=== PATIENT | female | born 1955 | race Caucasian/White ===

== ENCOUNTER → 2016-09-05 | Outpatient (CLI) | payer MEDICARE, MEDICAID ==
[~2016-09-05] MED LIST: ASPI-875 PO; C250T PO; CLON0.5T3 PO; DESV100T PO; OMEG1CAP51 PO; QUET50TA49 PO
--- NOTE | 2016-09-05 14:21 | Diagnostic Imaging Report ---
EXAMINATION: Bilateral breast ultrasound. INDICATION: Nodule in the 12 o'clock position in the right breast and irregularity along the implant at the 9 o'clock zone on the left. FINDINGS: In the left breast at the 2 o'clock zone 8 cm from the nipple, there is a well-defined oval hypoechoic lesion measuring 0.6 x 0.3 x 0.4 cm. No internal vasculature with color Doppler is seen. RIGHT BREAST: Again seen at the 12 o'clock zone is an area of irregularity along the surface of the implant with fluid anterior to the implant is seen. This is unchanged from 07/06/2015. This may relate to prior focal rupture and leakage without progression from the previous study. IMPRESSION: The right breast demonstrates a focal area of irregularity and fluid anterior to the implant, probably related to previous limited implant rupture. This is presumably an intracapsular rupture and is unchanged from the previous exam with the implant otherwise nearly completely inflated. 2. In the left breast, there is a 0.6 cm hypoechoic lesion seen at 8 cm from the nipple with likely benign features. A 6 month followup left breast ultrasound to ensure stability is recommended. 3. The patient is refusing mammography screening. ACR BI-RADS Category 3: Probably benign findings. Dictated by: Dictated on workstation # [id number]
== END ==
LOC: RAD 10:52
PROVIDERS: ATTEND Nurse Practitioner Family
DX: T85.43XD Leakage of breast prosthesis and implant, subsequent encounter (principal); R92.8 Other abnormal and inconclusive findings on diagnostic imaging of breast

== ENCOUNTER → 2017-06-18 | Outpatient (CLI) | payer MEDICARE, MEDICAID ==
[2017-06-18 12:33] LABS: ALANINE AMINOTRANSFERASE 35 U/L (0-55); ALBUMIN 4.1 GM/DL (3.2-4.5); ALKALINE PHOSPHATASE 65 U/L (40-136); BILIRUBIN,TOTAL 0.4 MG/DL (0.1-1.0); BUN/CREATININE RATIO 13; CALCIUM 9.3 MG/DL (8.5-10.1); CARBON DIOXIDE 27 MMOL/L (21-32); CHLORIDE 101 MMOL/L (98-107); CREATININE SERUM 0.89 MG/DL (0.60-1.30); GFR ESTIMATED > 60; GLUCOSE 86 MG/DL (70-105); PHOSPHORUS 2.5 MG/DL (2.3-4.7); POTASSIUM 3.9 MMOL/L (3.6-5.0); SODIUM 135 MMOL/L (135-145); TOTAL PROTEIN 6.6 GM/DL (6.4-8.2)
[2017-06-18 12:56] LABS: FREE T4 (FREE THYROXINE) 0.96 NG/DL (0.70-1.48)
== END ==
LOC: LAB 11:39
PROVIDERS: ATTEND Internal Medicine Endocrinology, Diabetes & Metabolism
DX: R53.83 Other fatigue (principal); F50.2 Bulimia nervosa; M81.0 Age-related osteoporosis without current pathological fracture
CPT/HCPCS: 36415; 80053; 82306; 82728; 83540; 83735; 84100; 84439; 84443

== ENCOUNTER 2017-10-09 08:45 | Outpatient (RCR) | payer MEDICARE, MEDICAID | END 2017-12-12 | disposition home or self-care (01) | PROVIDERS: ATTEND Family Medicine | DX: R42 Dizziness and giddiness (principal) ==

== ENCOUNTER → 2018-03-01 | Outpatient (CLI) | payer MEDICARE, MEDICAID ==
--- NOTE | 2018-03-01 16:19 | Diagnostic Imaging Report ---
INDICATION: Left breast nodule. Patient presents for a 6 month followup. COMPARISON: Prior breast ultrasound from 09/05/2016. FINDINGS: The left breast does show a hypoechoic nodule at the 2 o'clock location 8 cm from the nipple measuring 5 mm x 2 mm x 3 mm. This is similar to perhaps slightly smaller when compared to the prior ultrasound. No other abnormality in the left breast is identified. The right breast does show a small amount of fluid adjacent to the implant measuring 2.4 x 0.3 x 1.1 cm, also similar to the prior exam. No additional abnormality is seen. IMPRESSION: Stable bilateral breast ultrasound when compared to the examination of 18 months earlier. ACR BI-RADS Category 2: Benign findings. Dictated by: Dictated on workstation # [id number]
== END ==
LOC: RAD 10:55
PROVIDERS: ATTEND Family Medicine
DX: N63.21 Unspecified lump in the left breast, upper outer quadrant (principal)

== ENCOUNTER 2018-09-04 17:19 | Inpatient (IN) | payer MEDICARE, MEDICAID | END 2018-09-14 15:29 | disposition home or self-care (01) | LOC: 4TH 09-11 10:51 → ICU 17:19 | PROC: 0JH606Z Insertion of Pacemaker, Dual Chamber into Chest Subcutaneous Tissue and Fascia, Open Approach (ICD-10-PCS; principal; 2018-09-05) | PROC: 02H63JZ Insertion of Pacemaker Lead into Right Atrium, Percutaneous Approach (ICD-10-PCS; 2018-09-05) | PROC: 02HK3JZ Insertion of Pacemaker Lead into Right Ventricle, Percutaneous Approach (ICD-10-PCS; 2018-09-05) | PROC: 0W9B30Z Drainage of Left Pleural Cavity with Drainage Device, Percutaneous Approach (ICD-10-PCS; 2018-09-07) | DX: I44.2 Atrioventricular block, complete (principal); R00.1 Bradycardia, unspecified; J95.811 Postprocedural pneumothorax; F50.2 Bulimia nervosa; F10.21 Alcohol dependence, in remission; F41.9 Anxiety disorder, unspecified; F32.9 Major depressive disorder, single episode, unspecified; Z87.891 Personal history of nicotine dependence ==

== ENCOUNTER → 2019-02-24 | Outpatient (CLI) | payer MEDICARE, MEDICAID ==
[~2019-02-24] MED LIST changes: +BORON PO; +CALC-6 PO; +CEFU250T80 PO; +CLON1TAB13 PO; +ESTR-44 TD; +GARL400T14 PO; +MAGN250T13 PO; +MILK175T2 PO; +OMG1KC PO; +POTA1POW12 PO; +QUET25TA73 PO; +VITA40TA PO; +VORT20TA PO
--- NOTE | 2019-02-24 11:59 | Diagnostic Imaging Report ---
EXAMINATION: Bilateral breast ultrasound. INDICATION: Follow-up breast nodule. FINDINGS: Reportedly, the patient has declined mammographic evaluation of the breasts. The patient does have bilateral breast implants and she feels that the implants were ruptured during a prior mammogram procedure. The previous breast ultrasound exam performed at 03/01/2018 noted a hypoechoic nodule in the 2 o'clock position approximately 8 cm from the nipple. This measured 5 x 2 x 3 mm. This finding seemed similar to the prior exam of 09/05/2016. On this exam that area now measures 7 x 3 x 5 mm. It also has somewhat of a different configuration than on the prior exam. There is still no increased vascularity to suggest that this is a malignant process. In the interval since the previous exam in the 3 o'clock position roughly 5 cm from the nipple, a new 9 x 4 x 10 mm fairly well-circumscribed avascular hypoechoic lesion has developed. This finding is of uncertain etiology and similar in appearance to the lesion in the 2 o'clock position. The left breast is otherwise unremarkable. As noted on the prior exam, there is a small amount of fluid adjacent to the implant on the right at 12 o'clock. This is similar to the previous study. IMPRESSION: 1. The small hypoechoic lesion in the 2 o'clock position of the left breast seen previously is slightly larger on this exam. There is also a new roughly 1 cm hypoechoic similar-appearing lesion in the 3 o'clock position. Both of these lesions are in close proximity to the implant and consequently would be challenging to biopsy. I would recommend that breast MRI be performed for further evaluation of these findings. The integrity of the implants could also be evaluated by breast MRI. If the breast MRI is not performed, then a short-term (three-month) follow-up left breast ultrasound exam would be recommended. 2. These results were discussed with Dr. Latosha Hines. ACR BI-RADS Category 3: Probably benign findings. Result letter will be mailed to the patient. Note: At least 10% of breast cancer is not imaged by mammography. Dictated by: Dictated on workstation # [id number]
== END ==
LOC: RAD 09:07
PROVIDERS: ATTEND Family Medicine
DX: Z12.31 Encounter for screening mammogram for malignant neoplasm of breast (principal); N64.89 Other specified disorders of breast; Z98.82 Breast implant status

== ENCOUNTER → 2019-05-14 | Outpatient (CLI) | payer MEDICARE, MEDICAID ==
--- NOTE | 2019-05-14 12:25 | Diagnostic Imaging Report ---
INDICATION: Follow-up breast ultrasound. Comparison made with prior examination from 02/24/2019 TECHNIQUE: Multiple real-time grayscale images were obtained over the left breast in various projections vertically in the 3 o'clock position. FINDINGS: In the 2 o'clock position of the left breast 8 cm from the nipple there is a complex cystic mass measuring 0.8 x 0.3 x 0.6 cm. This is compared to previous measurement of 0.7 x 0.3 x 0.5 cm. Additionally in the 3 o'clock position left breast 5 cm from the nipple is a tiny hypodensity measuring 1 x 0.3 x 1 cm. This is similar to the prior exam. The 2:30 position left breast 4 cm from the nipple is a new hypoechoic area measuring 0.7 x 0.2 x 0.5 cm. IMPRESSION: Category 0 further imaging needed. Complex densities in the left breast as described. These are stable to possibly slightly increased when compared to prior examination. Correlation with mammography is recommended. ACR BI-RADS Category 0: Incomplete. (Needs additional imaging evaluation). Dictated by: Dictated on workstation # [id number]
--- NOTE | 2019-05-14 12:46 | Diagnostic Imaging Report ---
INDICATION: Abnormal breast ultrasound. COMPARISON: 07/06/2015. FINDINGS: Four views of the left breast were obtained. The implant is intact. There are superior endplate calcifications and there may be some mild contraction of the implant. The fibroglandular tissue is heterogeneously dense. There is no mass, spiculated lesion, or suspicious calcification identified. The skin, nipple, and axilla are unremarkable. Despite review of tomography, no corresponding lesion is appreciated to correlate with the ultrasound findings. IMPRESSION: Probably benign findings. An additional 6 month followup breast ultrasound is recommended to ensure stability. ACR BI-RADS Category 3: Probably benign findings. Result letter will be mailed to the patient. Note: At least 10% of breast cancer is not imaged by mammography. Dictated by: Dictated on workstation # [id number]
== END ==
LOC: RAD 10:53
PROVIDERS: ATTEND Family Medicine
DX: N63.21 Unspecified lump in the left breast, upper outer quadrant (principal); N63.25 Unspecified lump in the left breast, overlapping quadrants; Z98.82 Breast implant status
CPT/HCPCS: 76642

== ENCOUNTER → 2019-09-23 | Outpatient (CLI) | payer MEDICARE, MEDICAID ==
--- NOTE | 2019-09-23 19:32 | Diagnostic Imaging Report ---
INDICATION: Three-month follow-up of the left breast and 7 month follow-up of the right breast. CORRELATION is made with a recent left breast ultrasound from 05/14/2019 and a bilateral breast ultrasound from 02/24/2019. Left breast 2:00 location again demonstrates a circumscribed ovoid hypoechoic nodule measuring 7 mm x 3 mm x 8 mm. This is stable in size to prior exams. No internal vascularity is seen. At the 3:00 location, 5 cm from the nipple, there is a slightly irregular, lobulated hypoechoic nodule measuring 11 mm x 4 mm x 11 mm. This is similar to perhaps 1 mm larger than prior exam. This does show internal vascularity. In addition, the kirby of this lesion appear to be some more ill-defined on today's exam. No new mass in the left breast is identified. Right breast again shows a small amount of fluid adjacent to the implant measuring 2.7 x 0.4 x 1.3 cm, stable. No new abnormality on the right is identified. IMPRESSION: BI-RADS Category 4. 1. Stable small fluid collection adjacent to the implant, right breast. 2. Stable circumscribed nodule 2:00 location, left breast. 3. The nodule at the 3:00 location of the left breast is fairly similar in size however this does appear to be more irregular on today's study and also demonstrates internal vascularity. This is somewhat concerning. Tissue sampling is recommended. This would be amenable to ultrasound-guided core biopsy. ACR BI-RADS Category 4: Suspicious abnormality. Result letter will be mailed to the patient. Note: At least 10% of breast cancer is not imaged by mammography. Dictated by: Dictated on workstation # [id number]
== END ==
LOC: RAD 14:02
PROVIDERS: ATTEND Family Medicine
DX: N63.21 Unspecified lump in the left breast, upper outer quadrant (principal); Z98.82 Breast implant status
CPT/HCPCS: 76642

== ENCOUNTER → 2019-09-30 | Outpatient (CLI) | payer MEDICARE, MEDICAID ==
[~2019-09-30] VITALS: Ht 160 cm; Wt 54.0 kg
[~2019-09-30] MED LIST changes: +CATHETER FLUSH 10 ML SYR IV PRN; +REGADENOSON 0.4 MG/5 ML SYR (LEXISCAN) IV ONE
[2019-09-30 09:32] VITALS: BP 144/93
[2019-09-30 09:42] VITALS: BP 131/88
--- NOTE | 2019-09-30 16:40 | STRESS TEST ---
DATE OF SERVICE: 09/30/2019 RESTING AND POST REGADENOSON TECHNETIUM-99M TETROFOSMIN SPECT CT IMAGING ORDERING PHYSICIAN: Dr. Medina. PRIMARY PHYSICIAN: Dr. Hines. CLINICAL DIAGNOSES: Shortness of breath, palpitations. Baseline images were carried out after injection of 10.45 mCi of technetium-99m Tetrofosmin for stress imaging. This was followed by 0.4 mg regadenoson and 31.4 mCi of technetium-99m Tetrofosmin for stress imaging. The electrocardiogram showed paced atrial rhythm with intermittent ventricular pacing as well. The electrocardiogram did not change significantly with the regadenoson infusion. The patient noted mild shortness of breath following regadenoson infusion, which resolved in a few minutes. Review of images at rest and following stress does not indicate perfusion defects consistent with significant myocardial ischemia and infarction. Gated images show normal global left ventricular systolic function with normal regional wall motion. Left ventricular ejection fraction is calculated to be 80%. Left ventricular end diastolic volume is 34 mL. Ejection fraction appears to be an overestimate due to partial volume effect due to low ventricular volumes. CONCLUSIONS: 1. No evidence of significant myocardial ischemia or infarction on this study. 2. No regional wall motion abnormality. 3. Well preserved global left ventricular systolic function with a calculated ejection fraction of 80%, which appears to be an overestimate due to partial volume effect. 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
== END ==
LOC: CARD 08:20
PROVIDERS: ATTEND Internal Medicine Cardiovascular Disease
DX: R06.02 Shortness of breath (principal); R00.2 Palpitations; Z95.0 Presence of cardiac pacemaker
CPT/HCPCS: 78452; 93017; 93225; 93226; A9502

== ENCOUNTER → 2019-10-09 | Outpatient (CLI) | payer MEDICARE, MEDICAID ==
[~2019-10-09] VITALS: Ht 160 cm; Wt 52.3 kg
[~2019-10-09] MED LIST changes: -CATHETER FLUSH 10 ML SYR IV PRN; +LIDOCAINE 1% INJ 20 ML 20 ML VIAL INJ ONE; -REGADENOSON 0.4 MG/5 ML SYR (LEXISCAN) IV ONE
--- NOTE | 2019-10-09 13:06 | Diagnostic Imaging Report ---
INDICATION: Left breast nodule. EXAM: The patient presents for ultrasound-guided biopsy. The patient was brought to the procedure room, placed on the table in the supine position. Ultrasound imaging of the left breast was performed to evaluate appropriate entry site. Skin of the left breast was prepped and draped in the usual sterile fashion. A small amount of 1% lidocaine was utilized for local anesthesia. A total of 2 core biopsies of the somewhat lobulated hyperechoic nodule at the 3:00 location of the left breast was performed utilizing the 14-gauge Achieve needle. The marker clip was then deployed. Hemostasis was obtained using manual compression. The patient tolerated the procedure well and left the department in stable condition. IMPRESSION: 1. Successful ultrasound guided core biopsy of the hypoechoic nodule at the 3:00 location of the left breast, 5 cm from the nipple. Pathology results are currently pending. Dictated by: Dictated on workstation # [id number]
== END ==
LOC: RAD 10:33
PROVIDERS: ATTEND Family Medicine
DX: N63.20 Unspecified lump in the left breast, unspecified quadrant (principal); Z98.82 Breast implant status
CPT/HCPCS: 19083

== ENCOUNTER → 2019-10-22 | Outpatient (CLI) | payer MEDICARE, MEDICAID ==
[~2019-10-22] MED LIST changes: -LIDOCAINE 1% INJ 20 ML 20 ML VIAL INJ ONE
[2019-10-22 15:28] LABS: BASOPHILS # (AUTO) 0.1 10^3/uL (0.0-0.1); BASOPHILS % (AUTO) 1 % (0-10); EOSINOPHILS % (AUTO) 0 % (0-10); HEMATOCRIT 40 % (35-52); HEMOGLOBIN 13.7 G/DL (11.5-16.0); LYMPHOCYTES # (AUTO) 1.3 X 10^3 (1.0-4.0); LYMPHOCYTES % (AUTO) 19 % (12-44); MEAN CORPUSCULAR HEMOGLOBIN 31 PG (25-34); MEAN CORPUSCULAR HGB CONC 34 G/DL (32-36); MEAN CORPUSCULAR VOLUME 91 FL (80-99); MEAN PLATELET VOLUME 8.9 FL (7.4-10.4); MONOCYTES # (AUTO) 0.5 X 10^3 (0.0-1.0); MONOCYTES % (AUTO) 8 % (0-12); NEUTROPHILS % (AUTO) 73 % (42-75); PLATELET COUNT 361 10^3/uL (130-400); RED CELL DISTRIBUTION WIDTH 12.1 % (10.0-14.5)
[2019-10-22 15:52] LABS: ALBUMIN 4.6 GM/DL (3.2-4.5); CHLORIDE 100 MMOL/L (98-107); POTASSIUM 3.8 MMOL/L (3.6-5.0); SODIUM 136 MMOL/L (135-145)
[2019-10-22 15:53] LABS: CALCIUM 9.5 MG/DL (8.5-10.1)
[2019-10-22 15:54] LABS: GLUCOSE 98 MG/DL (70-105); TOTAL PROTEIN 7.7 GM/DL (6.4-8.2)
[2019-10-22 15:56] LABS: BILIRUBIN,TOTAL 0.3 MG/DL (0.1-1.0); CARBON DIOXIDE 24 MMOL/L (21-32)
[2019-10-22 15:58] LABS: ALKALINE PHOSPHATASE 61 U/L (40-136); GFR ESTIMATED > 60
[2019-10-22 15:59] LABS: BUN/CREATININE RATIO 9
[2019-10-22 16:01] LABS: ALANINE AMINOTRANSFERASE 12 U/L (0-55); MAGNESIUM 2.3 MG/DL (1.6-2.4)
[2019-10-22 16:24] LABS: ERYTHROCYTE SEDIMENTATION RATE 9 MM/HR (0-30)
== END ==
LOC: LAB 14:57
PROVIDERS: ATTEND Internal Medicine Cardiovascular Disease
DX: R06.02 Shortness of breath (principal); R00.2 Palpitations; Z95.0 Presence of cardiac pacemaker
CPT/HCPCS: 36415; 80053; 83735; 84443; 85025; 85652

== ENCOUNTER 2021-03-03 12:06 | Outpatient (CLI) | payer MEDICARE, MEDICAID ==
[~2021-03-03] VITALS: Ht 162.6 cm; Wt 53.5 kg
[2021-03-03 12:00] VITALS: BP 132/78
[~2021-03-03 12:06] MED LIST changes: -CALC-6 PO; +CALC1TAB84 PO; -GARL400T14 PO; +GARL400T15 PO; +QUET25TA35 PO; -QUET25TA73 PO
[2021-03-03] MEDS ORDERED: ONDANSETRON 4 MG/2 ML (SDV) Z0FRAN IV PRN (13:30)
[2021-03-03] MEDS ORDERED: ACETAMINOPHEN 500 MG TAB (TYLENOL) PO PRN (13:30)
[2021-03-03] MEDS ORDERED: BAMLANIVIMAB 700 MG/ETESEVIMAB 1,400 MG IN NS IV ONE ×3 (13:30)
[2021-03-03] MEDS ORDERED: EPINEPHrine INJECTION 1 MG/ML AMP IM PRN (13:30)
[2021-03-03] MEDS ORDERED: diphenhydrAMINE 50 MG/ML INJ (BENADRYL) IV PRN (13:30)
[2021-03-03 13:58] VITALS: BP 151/83
== END 2021-03-03 14:46 | disposition home or self-care (01) ==
LOC: INFUSION 12:06
PROVIDERS: ATTEND Family Medicine
DX: U07.1 COVID-19 (principal)

== ENCOUNTER → 2021-05-02 | Outpatient (RCR) | payer MEDICARE, MEDICAID | END | disposition home or self-care (01) | PROVIDERS: ATTEND Family Medicine | DX: H81.10 Benign paroxysmal vertigo, unspecified ear (principal) ==

== ENCOUNTER 2021-05-23 14:30 | Outpatient (RCR) | payer MEDICARE, MEDICAID | END 2021-05-30 | disposition home or self-care (01) | PROVIDERS: ATTEND Family Medicine | DX: H81.10 Benign paroxysmal vertigo, unspecified ear (principal) ==

== ENCOUNTER 2021-06-25 16:27 | Emergency (ER) | payer MEDICARE, MEDICAID ==
[~2021-06-25] VITALS: Ht 162 cm; Wt 54.5 kg
[2021-06-25] MEDS ORDERED: TETANUS,DIPTH,PERTUSS P/F (BOOSTRIX) 0.5 ML VIAL IM ONE (16:45)
[2021-06-25] MEDS ORDERED: AUGMENTIN 875 MG TAB (AMOXICILLIN/CLAVULANATE) PO SCH (17:00)
[2021-06-25] MEDS ORDERED: AMOX-355 PO (17:06)
--- NOTE | 2021-06-25 17:06 | ED Upper Extremity ---
General Chief Complaint: Bite-Animal/Human/Insect Stated Complaint: L HAND DOG BITE Nursing Triage Note: AMB TO ROOM REPORTS WAS AT [place] [employer] WENT TO PET A DOG AND IT BIT HER ON THE L HAND FLAT TYPE LACERATION. Source: patient Exam Limitations: no limitations (ALEXANDRIA ZULETA APRN) History of Present Illness Date Seen by Provider: Jun 25, 2021 Time Seen by Provider: 17:02 Initial Comments To ER with reports of a dog bite to the left hand. Patient is not up-to-date on her tetanus vaccine. The dog is up-to-date on its rabies vaccine. 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 Onset: just prior to arrival Severity: moderate Pain/Injury Location: left hand Modifying Factors: Improves With Movement (ALEXANDRIA ZULETA APRN) Allergies and Home Medications Allergies Coded Allergies: No Known Drug Allergies (Verified , 03/03/21) Patient Home Medication List Home Medication List Reviewed: Yes (ALEXANDRIA ZULETA APRN) Amoxicillin/Potassium Clav (Augmentin 500-125 Tablet) 1 Each Tablet, 1 EACH PO BID Prescribed by: ALEXANDRIA ZULETA on 06/25/21 1706 Calcium Carbonate/Vitamin D3 (Calcium 600 + Vit D 200 Tablet) 1 Each Tablet, 1 TAB PO DAILY, (Reported) Entered as Reported by: ANDREA LOEW on 09/05/18915 Cefuroxime Axetil (Cefuroxime) 250 Mg Tablet, 250 MG PO BID Prescribed by: OSMAN MOON on 09/14/18 1449 Clonazepam (Clonazepam) 1 Mg Tablet, 0.5 MG PO TID PRN for ANXIETY, (Reported) Entered as Reported by: ANDREA LOWE on 09/05/18915 Estradiol (Estradiol Patch Twice Weekly 0.1mg/hr) 1 Each Patch.tdsw, 0.1 MG TD WEEK, (Reported) Entered as Reported by: ANDREA LOWE on 09/05/18915 Garlic (Garlic) 400 Mg Tablet, 400 MG PO DAILY, (Reported) Entered as Reported by: ANDREA LOWE on 09/05/18915 Milk Thistle Seed Extract (Milk Thistle) 175 Mg Tablet, 175 MG PO DAILY, (Reported) Entered as Reported by: ANDREA LOWE on 09/05/18915 [place] 3 Polyunsat Fatty Acids (Fish Oil 1,000 mg Capsule) 1,000 Mg Cap, 1,000 MG PO DAILY, (Reported) Entered as Reported by: ANDREA LOWE on 09/05/18915 Potassium/Calcium/Magnes/Manga (Emergen-C Electro Mix Packet) 1 Each Powd.pack, 1 PACKET PO DAILY, (Reported) Entered as Reported by: ANDREA LOWE on 09/05/18915 Quetiapine Fumarate (Quetiapine Fumarate) 25 Mg Tablet, 25-75 MG PO HS, (Reported) Entered as Reported by: ANDREA LOWE on 09/05/18915 Vitamin K2 (Vitamin K2) 40 Mcg Tablet, 40 MCG PO DAILY, (Reported) Entered as Reported by: ANDREA LOWE on 09/05/18915 Vortioxetine Hydrobromide (Trintellix) 20 Mg Tablet, 20 MG PO HS, (Reported) Entered as Reported by: IVORY MARQUEZ on 09/04/181845 Review of Systems Constitutional: see HPI EENTM: see HPI Respiratory: no symptoms reported Cardiovascular: no symptoms reported Genitourinary: no symptoms reported Musculoskeletal: no symptoms reported Skin: no symptoms reported Psychiatric/Neurological: No Symptoms Reported (ALEXANDRIA ZULETA APRN) Past Gwpslvk-Osvvox-Shctqs Hx Immunizations Up To Date Tetanus Booster (TDap): Less than 5yrs First/Initial COVID19 Vaccinat: YES Second COVID19 Vaccination Duncan: YES 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 (ALEXANDRIA ZULETA APRN) Seasonal Allergies Seasonal Allergies: No (ALEXANDRIA ZULETA APRN) Past Medical History Surgeries: Yes Respiratory: No Cardiac: No Neurological: No Reproductive Disorders: No Genitourinary: No Gastrointestinal: No Musculoskeletal: No Endocrine: No HEENT: No Cancer: No Psychosocial: Yes Anxiety, Depression Integumentary: No Blood Disorders: No (ALEXANDRIA ZULETA APRN) Family Medical History No Pertinent Family Hx (ALEXANDRIA ZULETA APRN) Physical Exam Vital Signs Vital Signs - First Documented 06/25/21 16:34 Pulse 104 Resp 18 B/P (MAP) 144/91 (108) Pulse Ox 98 O2 Delivery Room Air (MARIA A PATTERSON MD) Vital Signs Capillary Refill : Less Than 3 Seconds (ALEXANDRIA ZULETA APRN) Height, Weight, BMI Height: 5'3.00" Weight: 107lbs. 8.0oz. 48.227087ic; 20.00 BMI Method:Stated General Appearance: WD/WN, no apparent distress HEENT: PERRL/EOMI, normal ENT inspection Neck: non-tender, full range of motion Respiratory: no respiratory distress, no accessory muscle use Elbow/Forearm: normal inspection, non-tender Wrist: Yes normal inspection, Yes non-tender Hand: Left, laceration (There are 2 separate lacerations to the thenar eminence of the left hand. More proximally there is a linear 1 cm laceration depth to the subcutaneous tissue. Minimal oozing of blood. Distally there is a U shaped laceration down to the muscle fascia. these 2 lacerations were anesthetized with a total of 3 mL of 1% lidocaine without epinephrine. Wound was then irrigated copiously with about 250 mL of chlorhexidine/saline solution. Then closed the proximal laceration with 3 simple interrupted sutures size 4-0 Prolene and the more distal U-shaped laceration was closed with 5 simple interrupted 4-0 Prolene sutures. This was covered with antibiotic ointment then 2 x 2 then Coban.) Neurologic/Tendon: normal sensation, normal motor functions Neurologic/Psychiatric: alert, normal mood/affect, oriented x 3 Skin: normal color, warm/dry (ALEXANDRIA ZULETA APRN) Progress/Results/Core Measures Results/Orders Medications Given in ED Current Medications Medications Dose Ordered Sig/Mario Route Start Time Stop Time Status Last Admin Dose Admin Diphtheria/ Tetanus/Acell Pertussis 0.5 ml ONCE ONCE IM 06/25/21 16:45 06/25/21 16:46 DC 06/25/21 16:57 0.5 ML (MARIA A PATTERSON MD) Vital Signs/I&O 06/25/21 06/25/21 16:34 17:10 Pulse 104 Resp 18 18 B/P (MAP) 144/91 (108) 144/91 Pulse Ox 98 98 O2 Delivery Room Air (MARIA A PATTERSON MD) Blood Pressure Mean: 108 Departure Impression Primary Impression: Dog bite Disposition: 01 HOME, SELF-CARE Condition: Stable Departure-Patient Inst. Decision time for Depature: 17:04 (ALEXANDRIA ZULETA APRN) Referrals: ROSY DILLON MD (PCP) Primary Care Physician [facility] (Family) Primary Care Physician Patient Instructions: Animal Bites (DC) Add. Discharge Instructions: 1. Return to ER for any concerns 2. Take the dressing off to shower and then pat this dry and reapply the dressing. Expect this to ooze for a couple of days. Antibiotics as directed. Return to ER if any sign of infection such as redness or puslike drainage. Otherwise return to ER in about 10 days to have the stitches removed. All discharge instructions reviewed with patient and/or family. Voiced understanding. Scripts Amoxicillin/Potassium Clav (Augmentin 500-125 Tablet) 1 Each Tablet 1 EACH PO BID, #14 TAB Prov: ALEXANDRIA ZULETA APRN 06/25/21 ATTENDING PHYSICIAN NOTE: I was physically present as attending physician in the emergency department during the care of this patient, but I was not directly involved in the decision making or delivery of care for this patient. (MARIA A PATTERSON MD) ALEXANDRIA ZULETA APRN Jun 25, 2021 17:06 MARIA A PATTERSON MD Jun 25, 2021 19:08
[2021-06-25 17:10] VITALS: BP 144/91
[2021-06-26] MEDS ORDERED: TRM50T PO (11:54)
== END 2021-06-25 17:12 | disposition home or self-care (01) ==
LOC: EDUNIT# 16:27 → ER 16:29
DX: S61.452A Open bite of left hand, initial encounter (principal); Z23 Encounter for immunization; W54.0XXA Bitten by dog, initial encounter
CPT/HCPCS: 12002; 90715

== ENCOUNTER 2021-06-26 10:06 | Emergency (ER) | payer MEDICARE, MEDICAID ==
[~2021-06-26] VITALS: Ht 165.2 cm; Wt 54.5 kg
[~2021-06-26 10:06] MED LIST changes: +AMOX-355 PO
--- NOTE | 2021-06-26 10:44 | ED General ---
General Chief Complaint: Wound Check (No Charge) Stated Complaint: L ARM SWELLING / RED - DOG BITE 06/25 Nursing Triage Note: AMB TO ED HAS SUTURES PLACED YESTERDAY FOR DOG BITE HAS TAKEN 2 DOSES OF ANTIBIOTICS WOKE OF TODAY WITH RENDESS AND SWELLING. Source of Information: Patient Exam Limitations: No Limitations History of Present Illness Date Seen by Provider: Jun 26, 2021 Time Seen by Provider: 10:14 Initial Comments 66yoF with no pertinent PMH coming in for a wound check following a dog bite and ED visit yesterday. She had some stitches to her hand and received antibiotics. Noticed redness, swelling, and pain from the wound this morning. Pain is 5/10 throbbing and is constant with nothing making it better or worse. Denies other issues. Allergies and Home Medications Allergies Coded Allergies: No Known Drug Allergies (Verified , 03/03/21) Patient Home Medication List Home Medication List Reviewed: Yes Amoxicillin/Potassium Clav (Augmentin 500-125 Tablet) 1 Each Tablet, 1 EACH PO BID Prescribed by: ALEXANDRIA ZULETA on 06/25/21 1706 Calcium Carbonate/Vitamin D3 (Calcium 600 + Vit D 200 Tablet) 1 Each Tablet, 1 TAB PO DAILY, (Reported) Entered as Reported by: ANDREA LOWE on 09/05/18915 Cefuroxime Axetil (Cefuroxime) 250 Mg Tablet, 250 MG PO BID Prescribed by: OSMAN MOON on 09/14/18 1449 Clonazepam (Clonazepam) 1 Mg Tablet, 0.5 MG PO TID PRN for ANXIETY, (Reported) Entered as Reported by: ANDREA LOWE on 09/05/18915 Estradiol (Estradiol Patch Twice Weekly 0.1mg/hr) 1 Each Patch.tdsw, 0.1 MG TD WEEK, (Reported) Entered as Reported by: ANDREA OLWE on 09/05/18915 Garlic (Garlic) 400 Mg Tablet, 400 MG PO DAILY, (Reported) Entered as Reported by: ANDREA LOWE on 09/05/18915 Milk Thistle Seed Extract (Milk Thistle) 175 Mg Tablet, 175 MG PO DAILY, (Reported) Entered as Reported by: ANDREA LOWE on 09/05/18915 [place] 3 Polyunsat Fatty Acids (Fish Oil 1,000 mg Capsule) 1,000 Mg Cap, 1,000 MG PO DAILY, (Reported) Entered as Reported by: ANDREA LOWE on 09/05/18915 Potassium/Calcium/Magnes/Manga (Emergen-C Electro Mix Packet) 1 Each Powd.pack, 1 PACKET PO DAILY, (Reported) Entered as Reported by: ANDREA LOWE on 09/05/18915 Quetiapine Fumarate (Quetiapine Fumarate) 25 Mg Tablet, 25-75 MG PO HS, (Reported) Entered as Reported by: ANDREA LOWE on 09/05/18915 Vitamin K2 (Vitamin K2) 40 Mcg Tablet, 40 MCG PO DAILY, (Reported) Entered as Reported by: ANDREA LOWE on 09/05/18915 Vortioxetine Hydrobromide (Trintellix) 20 Mg Tablet, 20 MG PO HS, (Reported) Entered as Reported by: IVORY MARQUEZ on 09/04/18 184 Review of Systems Review of Systems Constitutional: No chills, No fever EENTM: No blurred vision Respiratory: No cough Cardiovascular: No chest pain Gastrointestinal: No abdominal pain Genitourinary: no symptoms reported Musculoskeletal: other (hand pain) Skin: rash Psychiatric/Neurological: No Symptoms Reported Hematologic/Lymphatic: No Symptoms Reported Immunological/Allergic: no symptoms reported Past Isnnzvz-Hfdegy-Teveqn Hx Patient Social History Substance use?: No Immunizations Up To Date Tetanus Booster (TDap): Less than 5yrs First/Initial COVID19 Vaccinat: YES Second COVID19 Vaccination Duncan: YES Seasonal Allergies Seasonal Allergies: No Past Medical History Surgeries: Yes Respiratory: No Cardiac: No Neurological: No Reproductive Disorders: No Genitourinary: No Gastrointestinal: No Musculoskeletal: No Endocrine: No HEENT: No Cancer: No Psychosocial: Yes Anxiety, Depression Integumentary: No Blood Disorders: No Family Medical History No Pertinent Family Hx Physical Exam Vital Signs Vital Signs - First Documented 06/26/21 10:20 Temp 36.0 Pulse 100 Resp 18 B/P (MAP) 136/92 Pulse Ox 98 Capillary Refill : Height, Weight, BMI Height: 5'3.00" Weight: 107lbs. 8.0oz. [id number]; 20.00 BMI Method:Stated General Appearance: No Apparent Distress, WD/WN Eyes: Bilateral Eye Normal Inspection HEENT: PERRL/EOMI, Normal ENT Inspection, Pharynx Normal Neck: Full Range of Motion, Normal Inspection, Non Tender, Supple Respiratory: Chest Non Tender, Lungs Clear, Normal Breath Sounds, No Accessory Muscle Use, No Respiratory Distress Cardiovascular: Regular Rate, Rhythm, No Edema, Normal Peripheral Pulses Gastrointestinal: Normal Bowel Sounds, Non Tender, Soft; No Distended, No Guarding Back: Normal Inspection, No CVA Tenderness Extremity: Normal Capillary Refill Neurologic/Psychiatric: Alert, No Motor/Sensory Deficits, Normal Mood/Affect Skin: Normal Color, Warm/Dry, Other (erythema from left thumb up forearm with some swelling) Lymphatic: No Adenopathy Progress/Results/Core Measures Suspected Sepsis SIRS Temperature: Pulse: 100 Respiratory Rate: 18 Laboratory Tests 06/26/21 11:01: White Blood Count 10.3 Blood Pressure 136 /92 Mean: Laboratory Tests 06/26/21 11:01: Platelet Count 299 Results/Orders Lab Results Laboratory Tests Test 06/26/21 11:01 Range/Units White Blood Count 10.3 4.3-11.0 10^3/uL Red Blood Count 4.27 3.80-5.11 10^6/uL Hemoglobin 13.0 11.5-16.0 g/dL Hematocrit 39 35-52 % Mean Corpuscular Volume 91 80-99 fL Mean Corpuscular Hemoglobin 30 25-34 pg Mean Corpuscular Hemoglobin Concent 33 32-36 g/dL Red Cell Distribution Width 12.4 10.0-14.5 % Platelet Count 299 130-400 10^3/uL Mean Platelet Volume 9.4 9.0-12.2 fL Immature Granulocyte % (Auto) 1 % Neutrophils (%) (Auto) 73 42-75 % Lymphocytes (%) (Auto) 18 12-44 % Monocytes (%) (Auto) 7 0-12 % Eosinophils (%) (Auto) 1 0-10 % Basophils (%) (Auto) 1 0-10 % Neutrophils # (Auto) 7.5 1.8-7.8 10^3/uL Lymphocytes # (Auto) 1.8 1.0-4.0 10^3/uL Monocytes # (Auto) 0.7 0.0-1.0 10^3/uL Eosinophils # (Auto) 0.1 0.0-0.3 10^3/uL Basophils # (Auto) 0.1 0.0-0.1 10^3/uL Immature Granulocyte # (Auto) 0.1 0.0-0.1 10^3/uL C-Reactive Protein High Sensitivity 2.14 H 0.00-0.50 MG/DL My Orders Orders - COREY OBREGON MD Ampicillin/Sulbactam Injection (Unasyn 3 (06/26/21 11:00) Cbc With Automated Diff (06/26/21 10:52) Hs C Reactive Protein (06/26/21 10:52) Medications Given in ED Current Medications Medications Dose Ordered Sig/Mario Route Start Time Stop Time Status Last Admin Dose Admin Ampicillin Sodium/ Sulbactam Sodium 3 gm/Sodium Chloride 100 ml @ 200 mls/hr ONCE ONCE IV 06/26/21 11:00 06/26/21 11:29 DC 06/26/21 11:14 200 MLS/HR Vital Signs/I&O 06/26/21 10:20 Temp 36.0 Pulse 100 Resp 18 B/P (MAP) 136/92 Pulse Ox 98 Capillary Refill : Progress Note : Progress Note 66-year-old female with above history coming in due to redness and swelling around her dog bite wound. ABCs were intact and vitals were stable on presentation. Specifically she is afebrile and not tachycardic. She is othe rwise well-appearing. It is possible this is early onset cellulitis, however the timing is so rapid that I suspect this is more bruising given the color is not bright red like a typical cellulitis, and has some blue hues to it. I outlined it on her forearm with ink and timed it, and have the patient take a picture of it for us to follow in the future if she comes back. We will treat it as if it is presumed cellulitis, given the extent of the wounds and their concerns for how fast it could spread. We will give her a dose of Unasyn here. I did take out 1 stitch from each wound to make them slightly more loose to allow for some drainage if infection does truly set in. There is no purulent drainage at this time. CBC and CRP also ordered. I told her to call her primary care doctor tomorrow to schedule a follow-up wound check in the next couple days. I believe she is stable for discharge with outpatient follow-up. She was sent home with strict return precautions. Departure Impression Primary Impression: Dog bite Qualified Codes: W54.0XXD - Bitten by dog, subsequent encounter Additional Impression: Cellulitis Qualified Codes: L03.114 - Cellulitis of left upper limb Disposition: HOME, SELF-CARE Condition: Stable Departure-Patient Inst. Decision time for Depature: 12:20 Referrals: ROSY DILLON MD (PCP/Family) Primary Care Physician Patient Instructions: Cellulitis (Skin Infection), Adult ED, Animal Bites ED Add. Discharge Instructions: Take a picture of your wound every day. Follow-up with your regular doctor in the next couple days for wound check. If the redness start spreading up your arm rapidly or you begin having a fever either call your doctor immediately or come back to the ER. He will have more drainage since I open the wound up some. But if pure pus starts coming out please let your doctor know. Be sure to finish your antibiotics as prescribed. Scripts Tramadol HCl (Tramadol HCl) 50 Mg Tablet 50 MG PO Q6H PRN for PAIN for 3 Days, #12 TAB 0 Refills Prov: COREY OBREGON MD 06/26/21 COREY OBREGON MD Jun 26, 2021 10:44
[2021-06-26] MEDS ORDERED: AMPICILLIN/SULBACTAM INJECTION 3 GM in NS (IVPB) 100 ML IV ONE (11:00)
[2021-06-26 11:08] LABS: BASOPHILS # (AUTO) 0.1 10^3/uL (0.0-0.1); BASOPHILS % (AUTO) 1 % (0-10); EOSINOPHILS # (AUTO) 0.1 10^3/uL (0.0-0.3); EOSINOPHILS % (AUTO) 1 % (0-10); HEMATOCRIT 39 % (35-52); LYMPHOCYTES # (AUTO) 1.8 10^3/uL (1.0-4.0); LYMPHOCYTES % (AUTO) 18 % (12-44); MEAN CORPUSCULAR HEMOGLOBIN 30 pg (25-34); MEAN CORPUSCULAR HGB CONC 33 g/dL (32-36); MEAN CORPUSCULAR VOLUME 91 fL (80-99); MEAN PLATELET VOLUME 9.4 fL (9.0-12.2); MONOCYTES # (AUTO) 0.7 10^3/uL (0.0-1.0); MONOCYTES % (AUTO) 7 % (0-12); NEUTROPHILS # (AUTO) 7.5 10^3/uL (1.8-7.8); NEUTROPHILS % (AUTO) 73 % (42-75); PLATELET COUNT 299 10^3/uL (130-400); WHITE BLOOD COUNT 10.3 10^3/uL (4.3-11.0)
[2021-06-26] MEDS ORDERED: TRM50T PO (11:54)
[2021-06-26 12:16] VITALS: BP 136/92
[2021-06-26] MEDS ORDERED: NS IV 1000 ML 1,000 ML ONE (14:42)
[2021-06-27] MEDS ORDERED: AMOX-355 PO (10:39)
[2021-06-27] MEDS ORDERED: ONDA4TAB11 PO (10:40)
== END 2021-06-26 12:16 | disposition home or self-care (01) ==
LOC: EDUNIT# 10:06 → ER 10:08
DX: L03.114 Cellulitis of left upper limb (principal)
CPT/HCPCS: 36415; 85025; 86141

== ENCOUNTER 2021-06-27 08:41 | Emergency (ER) | payer MEDICARE, MEDICAID ==
[~2021-06-27] VITALS: Ht 162.5 cm; Wt 54.4 kg
[~2021-06-27 08:41] MED LIST changes: +TRM50T PO
--- NOTE | 2021-06-27 09:00 | ED Integumentary General ---
General Chief Complaint: Upper Extremity Stated Complaint: L HAND DOG BITE 06/25- SWELLING / RED Source: patient Exam Limitations: no limitations History of Present Illness Date Seen by Provider: Jun 27, 2021 Time Seen by Provider: 08:50 Initial Comments Patient is a 66-year-old female who presents to the emergency department today with a chief complaint of swelling and increasing redness over the left hand and forearm. Patient was bit by a dog on June 25. She was placed on antibiotics and came for reevaluation to the emergency room yesterday. Patient states the redness is continuing to spread. She denies fever, chills, URI symptoms. No nausea or vomiting. She has been tolerating her antibiotics well. Concerned because of the increasing redness around the pen sargent outlining the erythema from yesterday. Per review of the medical record the patient was sent out on Augmentin 500 mg twice daily for 7 days. She is also taking pain medication. All other review of systems reviewed and negative except as stated Timing/Duration: getting worse Severity: moderate Location: hands Possible Cause: other (Dog bite) Associated Symptoms: edema (Swelling to hand) Allergies and Home Medications Allergies Coded Allergies: No Known Drug Allergies (Verified , 03/03/21) Patient Home Medication List Home Medication List Reviewed: Yes Amoxicillin/Potassium Clav (Augmentin 500-125 Tablet) 1 Each Tablet, 1 EACH PO BID Prescribed by: ALEXANDRIA ZULETA on 06/25/21 1706 Calcium Carbonate/Vitamin D3 (Calcium 600 + Vit D 200 Tablet) 1 Each Tablet, 1 TAB PO DAILY, (Reported) Entered as Reported by: ANDREA LOWE on 09/05/18915 Cefuroxime Axetil (Cefuroxime) 250 Mg Tablet, 250 MG PO BID Prescribed by: OSMAN MOON on 09/14/18 1449 Clonazepam (Clonazepam) 1 Mg Tablet, 0.5 MG PO TID PRN for ANXIETY, (Reported) Entered as Reported by: ANDREA LOWE on 09/05/18915 Estradiol (Estradiol Patch Twice Weekly 0.1mg/hr) 1 Each Patch.tdsw, 0.1 MG TD WEEK, (Reported) Entered as Reported by: ANDREA LOWE on 09/05/18915 Garlic (Garlic) 400 Mg Tablet, 400 MG PO DAILY, (Reported) Entered as Reported by: ANDREA LOWE on 09/05/18915 Milk Thistle Seed Extract (Milk Thistle) 175 Mg Tablet, 175 MG PO DAILY, (Reported) Entered as Reported by: ANDREA LOWE on 09/05/18 09 [place] 3 Polyunsat Fatty Acids (Fish Oil 1,000 mg Capsule) 1,000 Mg Cap, 1,000 MG PO DAILY, (Reported) Entered as Reported by: ANDREA LOWE on 09/05/18915 Potassium/Calcium/Magnes/Manga (Emergen-C Electro Mix Packet) 1 Each Powd.pack, 1 PACKET PO DAILY, (Reported) Entered as Reported by: ANDREA LOWE on 09/05/18 09 Quetiapine Fumarate (Quetiapine Fumarate) 25 Mg Tablet, 25-75 MG PO HS, (Reported) Entered as Reported by: ANDREA LOWE on 09/05/18915 Tramadol HCl (Tramadol HCl) 50 Mg Tablet, 50 MG PO Q6H PRN for PAIN Prescribed by: COREY OBREGON on 06/26/21 1154 Vitamin K2 (Vitamin K2) 40 Mcg Tablet, 40 MCG PO DAILY, (Reported) Entered as Reported by: ANDREA LOWE on 09/05/18 09 Vortioxetine Hydrobromide (Trintellix) 20 Mg Tablet, 20 MG PO HS, (Reported) Entered as Reported by: IVORY MARQUEZ on 09/04/18 1846 Review of Systems Review of Systems Constitutional: see HPI EENTM: no symptoms reported Respiratory: no symptoms reported Cardiovascular: no symptoms reported Gastrointestinal: no symptoms reported Genitourinary: no symptoms reported Musculoskeletal: joint pain (Left hand) Skin: other All Other Systems Reviewed Negative Unless Noted: Yes (Swelling, redness mild drainage to hand) Past Pawdnhi-Unhisj-Fzsvbc Hx Immunizations Up To Date Tetanus Booster (TDap): Less than 5yrs First/Initial COVID19 Vaccinat: YES Second COVID19 Vaccination Duncan: YES Seasonal Allergies Seasonal Allergies: No Past Medical History Surgeries: Yes Respiratory: No Cardiac: No Neurological: No Reproductive Disorders: No Genitourinary: No Gastrointestinal: No Musculoskeletal: No Endocrine: No HEENT: No Cancer: No Psychosocial: Yes Anxiety, Depression Integumentary: No Blood Disorders: No Family Medical History No Pertinent Family Hx Physical Exam Vital Signs Vital Signs - First Documented 06/27/21 08:45 Temp 36.0 Pulse 99 Resp 20 B/P (MAP) 151/96 (114) Pulse Ox 97 O2 Delivery Room Air Capillary Refill : General Appearance: WD/WN, no apparent distress HEENT: PERRL/EOMI Neck: normal inspection Cardiovascular: regular rate, rhythm Respiratory: lungs clear, normal breath sounds, no respiratory distress, no accessory muscle use Extremities: normal range of motion, other (Patient has swelling over the thenar eminence of the left hand with sutured wound to the thenar eminence. No purulent drainage is noted. Erythema from the palm of the hand stretching up the volar forearm. Outlined area of erythema demonstrates some increased redness by about an inch outside the outlined sargent. Slightly tender to palpation over the thenar eminence. Swelling extends over the dorsum of the hand, patient states this has improved in the last 24 hours.) Neurologic/Psychiatric: alert, normal mood/affect, oriented x 3 Skin: normal color, warm/dry, other (see above) Progress/Results/Core Measures Results/Orders Lab Results Laboratory Tests Test 06/27/21 09:43 Range/Units White Blood Count 7.8 4.3-11.0 10^3/uL Red Blood Count 4.26 3.80-5.11 10^6/uL Hemoglobin 13.0 11.5-16.0 g/dL Hematocrit 39 35-52 % Mean Corpuscular Volume 93 80-99 fL Mean Corpuscular Hemoglobin 31 25-34 pg Mean Corpuscular Hemoglobin Concent 33 32-36 g/dL Red Cell Distribution Width 12.6 10.0-14.5 % Platelet Count 277 130-400 10^3/uL Mean Platelet Volume 9.4 9.0-12.2 fL Immature Granulocyte % (Auto) 1 % Neutrophils (%) (Auto) 68 42-75 % Lymphocytes (%) (Auto) 22 12-44 % Monocytes (%) (Auto) 8 0-12 % Eosinophils (%) (Auto) 2 0-10 % Basophils (%) (Auto) 1 0-10 % Neutrophils # (Auto) 5.3 1.8-7.8 10^3/uL Lymphocytes # (Auto) 1.7 1.0-4.0 10^3/uL Monocytes # (Auto) 0.6 0.0-1.0 10^3/uL Eosinophils # (Auto) 0.1 0.0-0.3 10^3/uL Basophils # (Auto) 0.0 0.0-0.1 10^3/uL Immature Granulocyte # (Auto) 0.0 0.0-0.1 10^3/uL C-Reactive Protein High Sensitivity 4.76 H 0.00-0.50 MG/DL My Orders Orders - DEONNA HAGEN MD Ed Iv/Invasive Line Start (06/27/21 09:07) Cbc With Automated Diff (06/27/21 09:07) Hs C Reactive Protein (06/27/21 09:07) Ampicillin/Sulbactam Injection (Unasyn 3 (06/27/21 09:15) Medications Given in ED Current Medications Medications Dose Ordered Sig/Mario Route Start Time Stop Time Status Last Admin Dose Admin Ampicillin Sodium/ Sulbactam Sodium 3 gm/Sodium Chloride 100 ml @ 200 mls/hr ONCE ONCE IV 06/27/21 09:15 06/27/21 09:44 DC 06/27/21 09:41 200 MLS/HR Vital Signs/I&O 06/27/21 08:45 Temp 36.0 Pulse 99 Resp 20 B/P (MAP) 151/96 (114) Pulse Ox 97 O2 Delivery Room Air Progress Progress Note : Time: 10:30 Progress Note Patient reassessed after antibiotics and labs. CBC reviewed, total white count is still within normal range. CRP has doubled in the last 24 hours. I spoke with the patient about increasing her Augmentin 2000 mg twice daily. I counseled her that this might cause some diarrhea. She has a follow-up appointment scheduled on Sunday of this week with her primary care provider's nurse practitioner. She is afebrile, not tachycardic. No concern at this time for sepsis. Advised of return precautions. She verbalized understanding. All questions are sought and answered. Patient was given 1 dose of 3 g of Unasyn pr ior to discharge. Departure Impression Primary Impression: Cellulitis of left hand Additional Impression: Dog bite of left hand Qualified Codes: S61.452D - Open bite of left hand, subsequent encounter; W54.0XXD - Bitten by dog, subsequent encounter Disposition: 01 HOME, SELF-CARE Condition: Stable Departure-Patient Inst. Decision time for Depature: 10:33 Referrals: ROSY DILLON MD (PCP/Family) Primary Care Physician Patient Instructions: Cellulitis (Skin Infection), Adult (DC) Add. Discharge Instructions: Wash the hand with antibacterial soap twice a day. Apply triple antibiotic ointment over the wound with each dressing change. Continue to monitor yourself for worsening redness, drainage from the wound. If you develop fever over 100.4 you need to come back to the Hospital for re- evaluation. I have increased your antibiotics to 1000mg twice a day for 7 more days. This may cause some diarrhea and nausea. I have also sent a prescription for nausea medications. You should eat some yogurt with active cultures while on antibiotics, or obtain an over the counter PROBIOTIC while on these antibiotics. Please keep your follow up appointment with your primary care provider. Scripts Ondansetron (Ondansetron Odt) 4 Mg Tab.rapdis 4 MG PO Q8H PRN for nausea, #20 TAB Prov: DEONNA HAGEN MD 06/27/21 Amoxicillin/Potassium Clav (Augmentin 500-125 Tablet) 1 Each Tablet 2 EACH PO BID, #19 TAB Prov: DEONNA HAGEN MD 06/27/21 Copy Copies To 1: ORSY DILLON MD, KATHRYN M MD Jun 27, 2021 09:00
[2021-06-27] MEDS ORDERED: AMPICILLIN/SULBACTAM INJECTION 3 GM in NS (IVPB) 100 ML IV ONE (09:15)
[2021-06-27 09:48] LABS: BASOPHILS % (AUTO) 1 % (0-10); EOSINOPHILS # (AUTO) 0.1 10^3/uL (0.0-0.3); EOSINOPHILS % (AUTO) 2 % (0-10); HEMATOCRIT 39 % (35-52); LYMPHOCYTES # (AUTO) 1.7 10^3/uL (1.0-4.0); LYMPHOCYTES % (AUTO) 22 % (12-44); MEAN CORPUSCULAR HEMOGLOBIN 31 pg (25-34); MEAN CORPUSCULAR HGB CONC 33 g/dL (32-36); MEAN CORPUSCULAR VOLUME 93 fL (80-99); MEAN PLATELET VOLUME 9.4 fL (9.0-12.2); MONOCYTES # (AUTO) 0.6 10^3/uL (0.0-1.0); MONOCYTES % (AUTO) 8 % (0-12); NEUTROPHILS # (AUTO) 5.3 10^3/uL (1.8-7.8); NEUTROPHILS % (AUTO) 68 % (42-75); PLATELET COUNT 277 10^3/uL (130-400); WHITE BLOOD COUNT 7.8 10^3/uL (4.3-11.0)
[2021-06-27] MEDS ORDERED: AMOX-355 PO (10:39)
[2021-06-27] MEDS ORDERED: ONDA4TAB11 PO (10:40)
[2021-06-27 18:46] VITALS: BP 149/89
== END 2021-06-27 11:03 | disposition home or self-care (01) ==
LOC: EDUNIT# 08:41 → ER 08:43
DX: L03.114 Cellulitis of left upper limb (principal); S61.452D Open bite of left hand, subsequent encounter; Z79.2 Long term (current) use of antibiotics; W54.0XXD Bitten by dog, subsequent encounter
CPT/HCPCS: 36415; 85025; 86141

== ENCOUNTER 2021-07-06 13:26 | Emergency (ER) | payer MEDICARE, MEDICAID ==
[~2021-07-06 13:26] MED LIST changes: +ONDA4TAB11 PO
[2021-07-06 13:40] VITALS: BP 140/89
== END 2021-07-06 13:46 | disposition home or self-care (01) ==
LOC: EDUNIT# 13:26 → ER 13:28
DX: Z48.02 Encounter for removal of sutures (principal)

== ENCOUNTER 2021-12-07 05:47 | Outpatient (CLI) | payer MEDICARE, MEDICAID ==
[~2021-12-07] VITALS: Ht 160 cm; Wt 61.2 kg
[2021-12-07] MEDS ORDERED: MTP25TSR PO (12:11)
[2021-12-07] MEDS ORDERED: VILA40TA PO (12:11)
[2021-12-07] MEDS ORDERED: MAGN400C PO (12:11)
[2021-12-07] MEDS ORDERED: ATOR10TA PO (12:11)
== END 2021-12-07 12:13 | disposition home or self-care (01) ==
LOC: PREOP 05:47
PROVIDERS: ATTEND Surgery
DX: Z01.818 Encounter for other preprocedural examination (principal)

== ENCOUNTER 2021-12-19 08:48 | Day surgery (SDC) | payer MEDICARE, MEDICAID ==
[~2021-12-19] VITALS: Ht 160 cm; Wt 61.2 kg
[~2021-12-19 08:48] MED LIST changes: +ATOR10TA PO; +MAGN400C PO; +MTP25TSR PO; +VILA40TA PO
[2021-12-19] MEDS ORDERED: LACTATED RINGERS 1,000 ML IV STA (08:53)
[2021-12-19] MEDS ORDERED: HURRICAINE EXT TUBE (BENZOCAINE) XX PRN (09:00)
[2021-12-19 09:20] VITALS: BP 119/82
--- NOTE | 2021-12-19 10:34 | Progress Note-Pre Operative ---
Pre-Operative Progress Note Date of Available H&P: Nov 22, 2021 Date H&P Reviewed: Dec 19, 2021 Time H&P Reviewed: 10:32 History & Physical: H&P Reviewed, Patient Examed, No changes noted Pre-Operative Diagnosis: screening colon, gastritis JOLEEN RODRIGUEZ DO Dec 19, 2021 10:34
[2021-12-19] MEDS ORDERED: PROPOFOL INJECTION 50 ML IV ONE (10:51)
[2021-12-19] MEDS ORDERED: MIDAZOLAM 2 MG/2 ML (VERSED) VIAL ONE (10:51)
[2021-12-19 11:30] VITALS: BP 83/53
--- NOTE | 2021-12-19 11:31 | Progress Note-Post Operative ---
Post-Operative Progess Note Surgeon (s)/Office Specialist (s) Surgeon JOLEEN RODRIGUEZ DO Office Specialist: Js Muirsalvador, MSIII Pre-Operative Diagnosis screening colon, gastritis Post-Operative Diagnosis Gastric ulcer hiatal hernia diverticula int hemorrhoids Procedure & Operative Findings Date of Procedure 12/19/21 Procedure Performed/Findings EGD with bx Colonoscopy PROCEDURE NOTE: After informed consent was obtained, the patient was brought to the endoscopy suite, placed in bed in left lateral decubitus position. She was administered IV sedation by the ADMINISTRATIVE ASSOCIATE who then monitored vitals the entire time, heart rate, blood pressure and pulse ox and the scope was inserted down the mouth through the esophagus into the stomach. On the way down, noted some mild esophagitis, took a picture, pushed into the stomach, and noted what looked like ulcers in the antrum. Pushed past the antrum into the duodenum; duodenum looked good. Pulled back and did a biopsy of the antral ulcers, then retrof lexed the scope, saw a small hiatal hernia, took a picture of this and then pulled the scope into the GE junction did a biopsy of the GE junction. Pushed the scope back into the stomach, suctioned all the air out of the stomach. At this point pulled the scope up the esophagus and out the mouth. Switched camera, switched gloves, went down below and started the colonoscopy. Pushed in and noted very small diverticula in the sigmoid colon, pushed to about 140 cm to get all the way to cecum, took a picture of the appendiceal orifice, noted the ileocecal valve and then slowly withdrew the scope, insufflating to look circumferentially at the kirby looking the cecum, up the ascending colon to the hepatic flexure, then down the transverse colon, splenic flexure, into the descending colon, down into the sigmoid and finally into the rectum, retroflexed in the rectal vault, saw some minimal internal hemorrhoids and took a picture of them. The patient tolerated the procedure and she recovered in the endoscopy suite. Recommended for repeat colonoscopy in 10 years Anesthesia Type IV sedation by ADMINISTRATIVE ASSOCIATE Estimated Blood Loss Estimated blood loss (mL): scant Specimens/Packing Specimens Removed antral bx x 2 GE jxn bx JOLEEN RODRIGUEZ DO Dec 19, 2021 11:31
--- NOTE | 2021-12-19 11:32 | Endoscopy Discharge Instruct ---
Endo Procedure/Findings Findings 1.: Gastric Ulcer 2.: Hiatal Hernia 3.: Diverticulosis 4.: Internal Hemorrhoids Discharge Instructions - Activity: You might feel a little sleepy until tomorrow. This is due to the medicine you received to relax you. Until tomorrow, you should: NOT drive a car, operate machinery or power tools. NOT drink any alcoholic beverages. NOT make any important decisions or sign importortant papers. Do not return to work until tomorrow, unless otherwise instructed. Resume previous activities tomorrow. Diet: Start by taking liquids. If you tolerate liquids, advance to solid food. 1.: EGD in 1 year 2.: Colonscopy in 10 years Notify Physician - If you experience excessive bleeding, unusual abdominal pain, fever, or chest pain, contact your doctor immediately. JOLEEN RODRIGUEZ DO Dec 19, 2021 11:32
[2021-12-19 11:35] VITALS: BP 81/53
--- NOTE | 2021-12-19 11:36 | Anesthesia-General Post-Op ---
MAC Patient Condition Mental Status/LOC: Same as Preop Cardiovascular: Satisfactory Nausea/Vomiting: Absent Respiratory: Satisfactory Pain: Controlled Complications: Absent Post Op Complications Complications None Follow Up Care/Instructions Patient Instructions None needed. Anesthesiology Discharge Order Discharge Order Patient is doing well, no complaints, stable vital signs, no apparent adverse anesthesia problems. No complications reported per nursing. GREGG PERSAUD CRNA Dec 19, 2021 11:36
[2021-12-19 11:40] VITALS: BP 94/68
[2021-12-19 12:10] VITALS: BP 107/81
[2021-12-19 12:17] VITALS: BP 107/81
== END 2021-12-19 12:17 | disposition home or self-care (01) ==
LOC: ENDO 08:48
PROVIDERS: ATTEND Surgery
DX: Z12.11 Encounter for screening for malignant neoplasm of colon (principal); K25.9 Gastric ulcer, unspecified as acute or chronic, without hemorrhage or perforation; K44.9 Diaphragmatic hernia without obstruction or gangrene; K57.30 Diverticulosis of large intestine without perforation or abscess without bleeding; K64.8 Other hemorrhoids; K29.50 Unspecified chronic gastritis without bleeding; K21.00 Gastro-esophageal reflux disease with esophagitis, without bleeding; Z95.2 Presence of prosthetic heart valve; Z87.891 Personal history of nicotine dependence; Z79.899 Other long term (current) drug therapy; Z95.0 Presence of cardiac pacemaker
CPT/HCPCS: 43239; G0121

== ENCOUNTER → 2022-01-30 | Outpatient (CLI) | payer MEDICARE, MEDICAID ==
--- NOTE | 2022-01-30 11:59 | Diagnostic Imaging Report ---
PROCEDURE: US Gallbladder. TECHNIQUE: Multiple real-time grayscale images were obtained over the right upper quadrant in various projections. INDICATION: Nausea. FINDINGS: Liver parenchyma appears normal. Long axis of 14 cm. The bile ducts are not dilated. Common duct measures 3 mm. Gallbladder is not distended. There is a 4 mm polyp along the posterior wall. The pancreas appears normal. The aorta measures 2 cm. Inferior vena cava and portal vein are normal with Doppler sampling. The right kidney measures 9.7 x 4 x 4.7 cm. There does appear to be mild hydro-caliectasis. Renal cortex is well preserved. No evidence of ascites. Negative Morillo sign. IMPRESSION: 1. The bile ducts are not dilated. Followup measuring 4 mm. 2. Mild hydro-caliectasis. Dictated by: Dictated on workstation # [id number]
== END ==
LOC: RAD 09:37
PROVIDERS: ATTEND Surgery
DX: N28.89 Other specified disorders of kidney and ureter (principal); R11.0 Nausea
CPT/HCPCS: 76705